=== PATIENT | female | born 1985 | race African-American/Black ===

== ENCOUNTER 2016-03-04 12:47 | Emergency (ER) | payer OTHER ==
[~2016-03-04] VITALS: Ht 157.5 cm; Wt 110.1 kg
[~2016-03-04 12:47] MED LIST: DIFLUCAN150 MG PO; MOTRIN600 MG PO; MOTRIN800 MG PO; NORCO 7.5/321 TABLET PO; PRENATAL TABLE1 EAC3 PO; VIBRAMYCIN100 MG PO
[2016-03-04 14:13] LABS: ADD MIUA? NO; BILIRUBIN NEGATIVE; BLOOD NEGATIVE; COLOR YELLOW ((YELLOW)); GLUCOSE (STRIP) NEGATIVE; KETONES NEGATIVE; LEUKOCYTES NEGATIVE; NITRITE NEGATIVE; PROTEIN (STRIP) NEGATIVE; SPECIFIC GRAVITY 1.029 (1.000-1.030); UCUL ADDED? NO; UROBILINOGEN 0.2 MG/DL (0.2-1.0)
[2016-03-04 14:15] LABS: INTERNAL CONTROL VALID? YES
[2016-03-04 14:58] VITALS: BP 121/60
[2016-03-06 13:24] LABS: CHLAMYDIA TRACHOMATIS NEGATIVE; NEISSERIA GONORRHOEAE NEGATIVE
== END 2016-03-04 14:59 | disposition home or self-care (01) ==
LOC: EME 12:47
PROVIDERS: Nurse Practitioner Family
DX: N93.8 Other specified abnormal uterine and vaginal bleeding (principal); Z11.3 Encounter for screening for infections with a predominantly sexual mode of transmission
CPT/HCPCS: 81003; 84703; 87210; 87491; 87591; 99281; 99284

== ENCOUNTER 2016-03-20 12:47 | Emergency (ER) | payer OTHER ==
[~2016-03-20] VITALS: Ht 157.5 cm; Wt 109.8 kg
[2016-03-20 15:13] LABS: HEMATOCRIT 38.3 % (36.0-46.0); MCH 26.7 PG (29.0-34.0); MCHC 33.2 G/DL (30.0-36.0); MCV 80.6 FL (83-99); MEAN PLAT.VOLUME 9.5 uM^3 (9.5-12.4); PLATELET COUNT 271 K/uL (156-360); RBC DIS.WIDTH-CV 15.4 % (11.8-14.6); RED BLOOD COUNT 4.75 M/uL (3.80-5.20)
[2016-03-20 15:19] LABS: ADD MIUA? NO; BILIRUBIN NEGATIVE; BLOOD NEGATIVE; COLOR YELLOW ((YELLOW)); GLUCOSE (STRIP) NEGATIVE; KETONES NEGATIVE; LEUKOCYTES NEGATIVE; NITRITE NEGATIVE; PROTEIN (STRIP) NEGATIVE; UCUL ADDED? NO; UROBILINOGEN 0.2 MG/DL (0.2-1.0)
[2016-03-20 17:26] VITALS: BP 120/76
== END 2016-03-20 17:27 | disposition home or self-care (01) ==
LOC: RME 12:47 → EME 12:47 → RME 17:27
DX: O20.9 Hemorrhage in early pregnancy, unspecified (principal); R10.30 Lower abdominal pain, unspecified; Z3A.00 Weeks of gestation of pregnancy not specified
CPT/HCPCS: 81003; 84702; 85027; 99281; 99284

== ENCOUNTER 2016-04-01 08:57 | Emergency (ER) | payer OTHER ==
[~2016-04-01] VITALS: Ht 157.5 cm; Wt 111.4 kg
[2016-04-01 09:26] LABS: HEMATOCRIT 37.1 % (36.0-46.0); MCHC 33.2 G/DL (30.0-36.0); MCV 81.5 FL (83-99); MEAN PLAT.VOLUME 9.8 uM^3 (9.5-12.4); PLATELET COUNT 226 K/uL (156-360); RBC DIS.WIDTH-CV 15.4 % (11.8-14.6); RBC DIS.WIDTH-SD 44.9 % (39-53); RED BLOOD COUNT 4.55 M/uL (3.80-5.20); WHITE BLOOD COUNT 5.5 K/uL (4.1-10.2)
[2016-04-01 10:01] LABS: ADD MIUA? YES; BILIRUBIN NEGATIVE; BLOOD NEGATIVE; COLOR YELLOW ((YELLOW)); GLUCOSE (STRIP) NEGATIVE; KETONES NEGATIVE; LEUKOCYTES MODERATE; NITRITE NEGATIVE; PROTEIN (STRIP) TRACE; SPECIFIC GRAVITY 1.024 (1.000-1.030); UROBILINOGEN 0.2 MG/DL (0.2-1.0)
[2016-04-01 10:42] LABS: RED BLOOD CELLS 0-5 /HPF (0-5)
[2016-04-01 10:43] LABS: BACTERIA 1+ /HPF; CASTS NONE SEEN /LPF; CRYSTALS NONE SEEN; EPITHELIAL CELLS 2+ /HPF; MUCUS NONE SEEN /LPF; UCUL ADDED? NO; WHITE BLOOD CELLS 0-5 /HPF (0-5)
[2016-04-01 12:17] VITALS: BP 122/90
== END 2016-04-01 12:18 | disposition home or self-care (01) ==
LOC: EME 08:57
DX: O20.0 Threatened abortion (principal); O23.31 Infections of other parts of urinary tract in pregnancy, first trimester; N76.0 Acute vaginitis; Z3A.08 8 weeks gestation of pregnancy
CPT/HCPCS: 76801; 81003; 84702; 85027; 86900; 86901; 99281; 99284

== ENCOUNTER 2016-07-01 11:19 | Emergency (ER) | payer OTHER ==
[~2016-07-01] VITALS: Ht 157.5 cm; Wt 119.3 kg
[2016-07-01 12:49] LABS: HEMATOCRIT 40.5 % (36.0-46.0); MCH 26.8 PG (29.0-34.0); MCHC 31.9 G/DL (30.0-36.0); MEAN PLAT.VOLUME 9.9 uM^3 (9.5-12.4); PLATELET COUNT 258 K/uL (156-360); RBC DIS.WIDTH-CV 14.3 % (11.8-14.6); RBC DIS.WIDTH-SD 43.4 % (39-53); RED BLOOD COUNT 4.82 M/uL (3.80-5.20); WHITE BLOOD COUNT 12.9 K/uL (4.1-10.2)
[2016-07-01 13:00] LABS: CHLORIDE 104 mEq/L (99-109); POTASSIUM 4.2 mEq/L (3.7-5.4); SODIUM 137 mEq/L (136-147)
[2016-07-01 13:02] LABS: GLUCOSE 87 mg/dL (70-99)
[2016-07-01 13:04] LABS: ANION GAP 10 MEQ/L (2-14); TOTAL BILIRUBIN 0.3 mg/dL (0.0-1.0)
[2016-07-01 13:06] LABS: ALKALINE PHOSPHATASE 88 IU/L (3-129); GFR ESTIMATE (CALCULATED) > 59 mL/min/
[2016-07-01 13:07] LABS: UREA NITROGEN (BUN) 8 mg/dL (9-23)
[2016-07-01 13:15] LABS: QUANTITATIVE HCG < 4.0 MIU/ML
[2016-07-01 15:37] LABS: ADD MIUA? YES; BILIRUBIN NEGATIVE; BLOOD LARGE; COLOR YELLOW ((YELLOW)); GLUCOSE (STRIP) NEGATIVE; KETONES NEGATIVE; LEUKOCYTES NEGATIVE; NITRITE NEGATIVE; PROTEIN (STRIP) 30; SPECIFIC GRAVITY 1.024 (1.000-1.030); UROBILINOGEN 0.2 MG/DL (0.2-1.0)
[2016-07-01 15:58] LABS: BACTERIA NONE SEEN /HPF; EPITHELIAL CELLS 2+ /HPF; MUCUS TRACE /LPF; RED BLOOD CELLS 0-5 /HPF (0-5); UCUL ADDED? NO; WHITE BLOOD CELLS 0-5 /HPF (0-5)
[2016-07-01] MEDS ORDERED: PERCOCET 5/31 TABLET PO (16:25)
[2016-07-01] MEDS ORDERED: ZOFRAN ODT4 MG PO (16:25)
[2016-07-01 16:30] VITALS: BP 126/88
== END 2016-07-01 16:45 | disposition home or self-care (01) ==
LOC: EME 11:19
DX: R10.30 Lower abdominal pain, unspecified (principal); N93.8 Other specified abnormal uterine and vaginal bleeding; R10.2 Pelvic and perineal pain
CPT/HCPCS: 76856; 80053; 81003; 84702; 85027; 99281; 99284

== ENCOUNTER 2016-08-18 17:04 | Emergency (ER) | payer OTHER ==
[~2016-08-18] VITALS: Ht 157.5 cm; Wt 111.8 kg
[~2016-08-18 17:04] MED LIST changes: +PERCOCET 5/31 TABLET PO; +ZOFRAN ODT4 MG PO
[2016-08-18 17:44] LABS: HEMATOCRIT 38.7 % (36.0-46.0); MCHC 32.6 G/DL (30.0-36.0); MEAN PLAT.VOLUME 10.4 uM^3 (9.5-12.4); PLATELET COUNT 278 K/uL (156-360); RBC DIS.WIDTH-CV 14.5 % (11.8-14.6); RBC DIS.WIDTH-SD 43.4 % (39-53); RED BLOOD COUNT 4.66 M/uL (3.80-5.20); WHITE BLOOD COUNT 7.1 K/uL (4.1-10.2)
[2016-08-18 17:53] LABS: CHLORIDE 105 mEq/L (99-109); POTASSIUM 4.2 mEq/L (3.7-5.4); SODIUM 137 mEq/L (136-147)
[2016-08-18 17:55] LABS: GLUCOSE 82 mg/dL (70-99)
[2016-08-18 17:56] LABS: ANION GAP 10 MEQ/L (2-14)
[2016-08-18 17:57] LABS: TOTAL BILIRUBIN 0.2 mg/dL (0.0-1.0)
[2016-08-18 17:58] LABS: ALKALINE PHOSPHATASE 89 IU/L (3-129)
[2016-08-18 17:59] LABS: GFR ESTIMATE (CALCULATED) > 59 mL/min/
[2016-08-18 18:00] LABS: UREA NITROGEN (BUN) 9 mg/dL (9-23)
[2016-08-18 18:08] LABS: QUANTITATIVE HCG < 4.0 MIU/ML
[2016-08-18 18:40] LABS: ADD MIUA? YES; BILIRUBIN NEGATIVE; BLOOD NEGATIVE; COLOR YELLOW ((YELLOW)); GLUCOSE (STRIP) NEGATIVE; KETONES NEGATIVE; LEUKOCYTES NEGATIVE; NITRITE NEGATIVE; PROTEIN (STRIP) NEGATIVE; SPECIFIC GRAVITY 1.015 (1.000-1.030); UROBILINOGEN 0.2 MG/DL (0.2-1.0)
[2016-08-18 18:44] LABS: BACTERIA RARE /HPF; EPITHELIAL CELLS RARE /HPF; MUCUS TRACE /LPF; RED BLOOD CELLS 0-5 /HPF (0-5); UCUL ADDED? NO; WHITE BLOOD CELLS 0-5 /HPF (0-5)
[2016-08-18] MEDS ORDERED: NORCO 5/3251 TABLET PO (19:13)
[2016-08-18 19:26] VITALS: BP 148/88
== END 2016-08-18 19:29 | disposition home or self-care (01) ==
LOC: EME 17:04 → EXP 17:04
DX: R10.2 Pelvic and perineal pain (principal)
CPT/HCPCS: 80053; 81003; 84702; 85027; 99281; 99284

== ENCOUNTER 2016-09-09 08:16 | Emergency (ER) | payer OTHER ==
[~2016-09-09] VITALS: Ht 157.5 cm; Wt 112.4 kg
[~2016-09-09 08:16] MED LIST changes: +NORCO 5/3251 TABLET PO
[2016-09-09 08:55] LABS: HEMATOCRIT 36.5 % (36.0-46.0); MCH 26.9 PG (29.0-34.0); MCHC 32.6 G/DL (30.0-36.0); MCV 82.6 FL (83-99); MEAN PLAT.VOLUME 9.9 uM^3 (9.5-12.4); PLATELET COUNT 232 K/uL (156-360); RBC DIS.WIDTH-CV 14.6 % (11.8-14.6); RBC DIS.WIDTH-SD 43.8 % (39-53); RED BLOOD COUNT 4.42 M/uL (3.80-5.20); WHITE BLOOD COUNT 7.1 K/uL (4.1-10.2)
[2016-09-09 09:00] LABS: ADD MIUA? YES; BILIRUBIN NEGATIVE; BLOOD NEGATIVE; COLOR YELLOW ((YELLOW)); GLUCOSE (STRIP) NEGATIVE; KETONES NEGATIVE; LEUKOCYTES TRACE; NITRITE NEGATIVE; PROTEIN (STRIP) NEGATIVE; SPECIFIC GRAVITY 1.018 (1.000-1.030); UROBILINOGEN 0.2 MG/DL (0.2-1.0)
[2016-09-09 09:04] LABS: BACTERIA NONE SEEN /HPF; EPITHELIAL CELLS 1+ /HPF; MUCUS TRACE /LPF; RED BLOOD CELLS 0-5 /HPF (0-5); UCUL ADDED? NO; WHITE BLOOD CELLS 0-5 /HPF (0-5)
[2016-09-09 09:05] LABS: CHLORIDE 106 mEq/L (99-109); SODIUM 138 mEq/L (136-147)
[2016-09-09 09:08] LABS: GLUCOSE 91 mg/dL (70-99)
[2016-09-09 09:09] LABS: ANION GAP 8 MEQ/L (2-14); TOTAL BILIRUBIN 0.2 mg/dL (0.0-1.0)
[2016-09-09 09:11] LABS: ALKALINE PHOSPHATASE 84 IU/L (3-129); GFR ESTIMATE (CALCULATED) > 59 mL/min/
[2016-09-09 09:12] LABS: UREA NITROGEN (BUN) 14 mg/dL (9-23)
[2016-09-09 09:21] LABS: QUANTITATIVE HCG < 4.0 MIU/ML
[2016-09-09 12:20] VITALS: BP 147/103
[2016-09-09 18:45] LABS: CANDIDA DNA PROBE NEGATIVE; GARDNERELLA DNA PROBE POSITIVE; INTERNAL CONTROL VALID? YES
[2016-09-11 12:21] LABS: CHLAMYDIA TRACHOMATIS NEGATIVE; NEISSERIA GONORRHOEAE NEGATIVE
== END 2016-09-09 12:21 | disposition home or self-care (01) ==
LOC: EME 08:16 → EXP 08:16
PROVIDERS: Physician Assistant
DX: N89.8 Other specified noninflammatory disorders of vagina (principal); R10.30 Lower abdominal pain, unspecified; R19.7 Diarrhea, unspecified; R11.0 Nausea; Z11.3 Encounter for screening for infections with a predominantly sexual mode of transmission
CPT/HCPCS: 80053; 81003; 84702; 85027; 87210; 87480; 87491; 87510; 87591; 87660; 99281; 99284; J0696

== ENCOUNTER 2016-10-14 21:02 | Emergency (ER) | payer OTHER ==
[~2016-10-14] VITALS: Ht 157.5 cm; Wt 111.5 kg
[2016-10-14 21:38] LABS: HEMATOCRIT 36.4 % (36.0-46.0); MCH 26.8 PG (29.0-34.0); MCHC 32.7 G/DL (30.0-36.0); MEAN PLAT.VOLUME 9.7 uM^3 (9.5-12.4); PLATELET COUNT 218 K/uL (156-360); RBC DIS.WIDTH-CV 14.5 % (11.8-14.6); RBC DIS.WIDTH-SD 43.1 % (39-53); RED BLOOD COUNT 4.44 M/uL (3.80-5.20); WHITE BLOOD COUNT 6.3 K/uL (4.1-10.2)
[2016-10-14 21:51] LABS: CHLORIDE 107 mEq/L (99-109); POTASSIUM 3.7 mEq/L (3.7-5.4); SODIUM 139 mEq/L (136-147)
[2016-10-14 21:54] LABS: GLUCOSE 118 mg/dL (70-99)
[2016-10-14 21:55] LABS: ANION GAP 8 MEQ/L (2-14)
[2016-10-14 21:56] LABS: TOTAL BILIRUBIN 0.2 mg/dL (0.0-1.0)
[2016-10-14 21:57] LABS: ALKALINE PHOSPHATASE 93 IU/L (3-129); GFR ESTIMATE (CALCULATED) > 59 mL/min/
[2016-10-14 21:58] LABS: UREA NITROGEN (BUN) 13 mg/dL (9-23)
[2016-10-14 22:07] LABS: QUANTITATIVE HCG < 4.0 MIU/ML
[2016-10-14 23:21] LABS: ADD MIUA? NO; BILIRUBIN NEGATIVE; BLOOD NEGATIVE; COLOR YELLOW ((YELLOW)); GLUCOSE (STRIP) NEGATIVE; KETONES NEGATIVE; LEUKOCYTES NEGATIVE; NITRITE NEGATIVE; PROTEIN (STRIP) 30; SPECIFIC GRAVITY 1.027 (1.000-1.030); UCUL ADDED? NO; UROBILINOGEN 0.2 MG/DL (0.2-1.0)
[2016-10-15] MEDS ORDERED: MOTRIN800 MG PO (00:07)
[2016-10-15 00:40] VITALS: BP 156/95
== END 2016-10-15 00:42 | disposition home or self-care (01) ==
LOC: EME 21:02
DX: N83.201 Unspecified ovarian cyst, right side (principal); N94.10 Unspecified dyspareunia
CPT/HCPCS: 76856; 80053; 81003; 84702; 85027; 99281; 99283

== ENCOUNTER 2017-01-16 16:42 | Emergency (ER) | payer SELFPAY ==
[~2017-01-16] VITALS: Ht 157.5 cm; Wt 113.7 kg
[2017-01-16 17:01] LABS: HEMATOCRIT 38.3 % (36.0-46.0); MCH 27.7 PG (29.0-34.0); MCHC 32.6 G/DL (30.0-36.0); MCV 84.7 FL (83-99); MEAN PLAT.VOLUME 9.9 uM^3 (9.5-12.4); PLATELET COUNT 239 K/uL (156-360); RBC DIS.WIDTH-CV 14.6 % (11.8-14.6); RBC DIS.WIDTH-SD 45.1 % (39-53); RED BLOOD COUNT 4.52 M/uL (3.80-5.20); WHITE BLOOD COUNT 6.3 K/uL (4.1-10.2)
[2017-01-16 17:12] LABS: CHLORIDE 106 mEq/L (99-109); POTASSIUM 3.9 mEq/L (3.7-5.4); SODIUM 138 mEq/L (136-147)
[2017-01-16 17:14] LABS: GLUCOSE 111 mg/dL (70-99)
[2017-01-16 17:15] LABS: ANION GAP 8 MEQ/L (2-14)
[2017-01-16 17:16] LABS: TOTAL BILIRUBIN 0.2 mg/dL (0.0-1.0)
[2017-01-16 17:18] LABS: ALKALINE PHOSPHATASE 93 IU/L (3-129); GFR ESTIMATE (CALCULATED) > 59 mL/min/
[2017-01-16 17:19] LABS: UREA NITROGEN (BUN) 12 mg/dL (9-23)
[2017-01-16 17:27] LABS: QUANTITATIVE HCG < 4.0 MIU/ML
[2017-01-16 17:52] LABS: ADD MIUA? YES; BILIRUBIN NEGATIVE; BLOOD NEGATIVE; COLOR YELLOW ((YELLOW)); GLUCOSE (STRIP) NEGATIVE; KETONES 5; LEUKOCYTES NEGATIVE; NITRITE NEGATIVE; PROTEIN (STRIP) 30; SPECIFIC GRAVITY 1.027 (1.000-1.030)
[2017-01-16 18:12] LABS: LIPASE 24 U/L (1.0-51.0)
[2017-01-16 18:29] LABS: BACTERIA RARE /HPF; EPITHELIAL CELLS 1+ /HPF; MUCUS 1+ /LPF; UCUL ADDED? NO; WHITE BLOOD CELLS 0-5 /HPF (0-5)
[2017-01-16] MEDS ORDERED: MOTRIN600 MG PO (20:43)
[2017-01-16 20:51] VITALS: BP 147/90
[2017-01-18 11:54] LABS: CHLAMYDIA TRACHOMATIS NEGATIVE; NEISSERIA GONORRHOEAE NEGATIVE
== END 2017-01-16 20:56 | disposition home or self-care (01) ==
LOC: EME 16:42
PROVIDERS: Physician Assistant
DX: R10.2 Pelvic and perineal pain (principal); N89.8 Other specified noninflammatory disorders of vagina
CPT/HCPCS: 76856; 80053; 81003; 83690; 84702; 85027; 87210; 87491; 87591; 99281; 99284

== ENCOUNTER 2017-01-26 11:10 | Emergency (ER) | payer OTHER ==
[~2017-01-26] VITALS: Ht 157.5 cm; Wt 114.6 kg
[2017-01-26 13:53] LABS: ADD MIUA? NO; BILIRUBIN NEGATIVE; BLOOD NEGATIVE; COLOR YELLOW ((YELLOW)); GLUCOSE (STRIP) NEGATIVE; KETONES NEGATIVE; LEUKOCYTES NEGATIVE; NITRITE NEGATIVE; PROTEIN (STRIP) NEGATIVE; SPECIFIC GRAVITY 1.025 (1.000-1.030); UROBILINOGEN 0.2 MG/DL (0.2-1.0)
[2017-01-26 14:09] VITALS: BP 154/89
[2017-01-27 14:35] LABS: CHLAMYDIA TRACHOMATIS NEGATIVE; NEISSERIA GONORRHOEAE NEGATIVE
== END 2017-01-26 14:09 | disposition home or self-care (01) ==
LOC: EME 11:10
PROVIDERS: Nurse Practitioner Family
DX: N89.8 Other specified noninflammatory disorders of vagina (principal); R68.83 Chills (without fever); R10.9 Unspecified abdominal pain; Z11.3 Encounter for screening for infections with a predominantly sexual mode of transmission
CPT/HCPCS: 81003; 84702; 87210; 87491; 87591; 99281; 99284

== ENCOUNTER 2017-04-28 10:47 | Emergency (ER) | payer OTHER ==
[~2017-04-28] VITALS: Ht 157.5 cm; Wt 111.4 kg
[2017-04-28 11:23] LABS: HEMATOCRIT 35.4 % (36.0-46.0); HEMOGLOBIN 11.7 G/DL (11.9-15.5); MCH 27.5 PG (29.0-34.0); MCHC 33.1 G/DL (30.0-36.0); MCV 83.3 FL (83-99); PLATELET COUNT 239 K/uL (156-360); RBC DIS.WIDTH-CV 14.3 % (11.8-14.6); RED BLOOD COUNT 4.25 M/uL (3.80-5.20); WHITE BLOOD COUNT 6.1 K/uL (4.1-10.2)
[2017-04-28 11:32] LABS: ALBUMIN 3.9 g/dL (3.2-4.8); CHLORIDE 109 mEq/L (99-109); POTASSIUM 4.1 mEq/L (3.7-5.4); SODIUM 139 mEq/L (136-147)
[2017-04-28 11:34] LABS: GLUCOSE 95 mg/dL (70-99)
[2017-04-28 11:36] LABS: TOTAL BILIRUBIN 0.2 mg/dL (0.0-1.0)
[2017-04-28 11:38] LABS: ALKALINE PHOSPHATASE 85 IU/L (3-129); CREATININE 0.8 mg/dL (0.6-1.3); GFR ESTIMATE (CALCULATED) > 59 mL/min/
[2017-04-28 11:39] LABS: UREA NITROGEN (BUN) 12 mg/dL (9-23)
[2017-04-28 11:40] LABS: AST (GOT) 18 IU/L (2-34)
[2017-04-28 11:41] LABS: ALT (GPT) 21 IU/L (3-49)
[2017-04-28 11:47] LABS: QUANTITATIVE HCG < 4.0 MIU/ML
[2017-04-28 13:15] VITALS: BP 137/95
== END 2017-04-28 13:15 | disposition left against medical advice (07) ==
LOC: EME 10:47
DX: R10.31 Right lower quadrant pain (principal); R19.7 Diarrhea, unspecified; Z87.891 Personal history of nicotine dependence
CPT/HCPCS: 80053; 81003; 84702; 85027; 99281; 99284

== ENCOUNTER 2017-06-18 19:33 | Emergency (ER) | payer OTHER ==
[~2017-06-18] VITALS: Ht 157.5 cm; Wt 111.4 kg
[2017-06-18 20:01] LABS: APPEARANCE CLEAR ((CLEAR)); BILIRUBIN NEGATIVE; BLOOD NEGATIVE; COLOR YELLOW ((YELLOW)); GLUCOSE (STRIP) NEGATIVE; KETONES NEGATIVE; LEUKOCYTES NEGATIVE; NITRITE NEGATIVE; PROTEIN (STRIP) 30; SPECIFIC GRAVITY 1.026 (1.000-1.030); UCUL ADDED? NO
[2017-06-18 20:07] LABS: HEMATOCRIT 35.1 % (36.0-46.0); HEMOGLOBIN 11.7 G/DL (11.9-15.5); MCH 27.6 PG (29.0-34.0); MCHC 33.3 G/DL (30.0-36.0); MCV 82.8 FL (83-99); PLATELET COUNT 248 K/uL (156-360); RBC DIS.WIDTH-CV 14.4 % (11.8-14.6); RBC DIS.WIDTH-SD 42.7 % (39-53); RED BLOOD COUNT 4.24 M/uL (3.80-5.20)
[2017-06-18 20:25] LABS: ALBUMIN 4.2 g/dL (3.2-4.8); CHLORIDE 108 mEq/L (99-109); POTASSIUM 3.9 mEq/L (3.7-5.4); SODIUM 139 mEq/L (136-147)
[2017-06-18 20:28] LABS: GLUCOSE 88 mg/dL (70-99); TOTAL PROTEIN 7.5 g/dL (6.4-8.3)
[2017-06-18 20:30] LABS: TOTAL BILIRUBIN 0.2 mg/dL (0.0-1.0)
[2017-06-18 20:31] LABS: ALKALINE PHOSPHATASE 103 IU/L (3-129); CREATININE 0.8 mg/dL (0.6-1.3); GFR ESTIMATE (CALCULATED) > 59 mL/min/
[2017-06-18 20:32] LABS: UREA NITROGEN (BUN) 13 mg/dL (9-23)
[2017-06-18 20:33] LABS: AST (GOT) 16 IU/L (2-34)
[2017-06-18 20:34] LABS: ALT (GPT) 19 IU/L (3-49)
[2017-06-18 20:42] LABS: QUANTITATIVE HCG < 4.0 MIU/ML
[2017-06-18] MEDS ORDERED: NAPROSYN500 MG PO (22:21)
[2017-06-18 22:24] LABS: SOURCE SWAB
[2017-06-18 22:26] VITALS: BP 146/92
== END 2017-06-18 22:27 | disposition home or self-care (01) ==
LOC: EME 19:33
PROVIDERS: Physician Assistant
DX: R10.30 Lower abdominal pain, unspecified (principal)
CPT/HCPCS: 80053; 81003; 84702; 85027; 87210; 87491; 87591; 99281; 99284

== ENCOUNTER 2017-09-11 17:40 | Emergency (ER) | payer OTHER ==
[~2017-09-11] VITALS: Ht 157.5 cm; Wt 111.4 kg
[~2017-09-11 17:40] MED LIST changes: +NAPROSYN500 MG PO
[2017-09-11 18:14] LABS: HEMATOCRIT 35.1 % (36.0-46.0); HEMOGLOBIN 11.7 G/DL (11.9-15.5); MCH 26.8 PG (29.0-34.0); MCHC 33.3 G/DL (30.0-36.0); MCV 80.5 FL (83-99); PLATELET COUNT 262 K/uL (156-360); RED BLOOD COUNT 4.36 M/uL (3.80-5.20); WHITE BLOOD COUNT 10.5 K/uL (4.1-10.2)
[2017-09-11 18:18] LABS: APPEARANCE CLEAR ((CLEAR)); BILIRUBIN NEGATIVE; BLOOD NEGATIVE; COLOR YELLOW ((YELLOW)); GLUCOSE (STRIP) NEGATIVE; KETONES 5; LEUKOCYTES SMALL; NITRITE NEGATIVE; PROTEIN (STRIP) NEGATIVE; SPECIFIC GRAVITY 1.025 (1.000-1.030)
[2017-09-11 18:25] LABS: ALBUMIN 4.4 g/dL (3.2-4.8); CHLORIDE 105 mEq/L (99-109); POTASSIUM 3.7 mEq/L (3.7-5.4); SODIUM 138 mEq/L (136-147)
[2017-09-11 18:28] LABS: GLUCOSE 108 mg/dL (70-99); TOTAL PROTEIN 8.1 g/dL (6.4-8.3)
[2017-09-11 18:29] LABS: BACTERIA RARE /HPF; EPITHELIAL CELLS 1+ /HPF; MUCUS TRACE /LPF; RED BLOOD CELLS 0-5 /HPF (0-5); UCUL ADDED? NO; WHITE BLOOD CELLS 0-5 /HPF (0-5)
[2017-09-11 18:30] LABS: TOTAL BILIRUBIN 0.2 mg/dL (0.0-1.0)
[2017-09-11 18:31] LABS: ALKALINE PHOSPHATASE 111 IU/L (3-129); CREATININE 0.9 mg/dL (0.6-1.3); GFR ESTIMATE (CALCULATED) > 59 mL/min/
[2017-09-11 18:32] LABS: UREA NITROGEN (BUN) 13 mg/dL (9-23)
[2017-09-11 18:33] LABS: AST (GOT) 15 IU/L (2-34)
[2017-09-11 18:34] LABS: ALT (GPT) 19 IU/L (3-49)
[2017-09-11 18:42] LABS: QUANTITATIVE HCG < 4.0 MIU/ML
[2017-09-11 20:47] LABS: LIPASE 17 U/L (1.0-51.0)
[2017-09-11] MEDS ORDERED: KEFLEX500 MG PO (22:52)
[2017-09-11 23:04] VITALS: BP 132/71
== END 2017-09-11 23:09 | disposition home or self-care (01) ==
LOC: EME 17:40 → RME 17:40
DX: R10.30 Lower abdominal pain, unspecified (principal); R10.2 Pelvic and perineal pain; N30.90 Cystitis, unspecified without hematuria; N89.8 Other specified noninflammatory disorders of vagina; R19.7 Diarrhea, unspecified; N92.6 Irregular menstruation, unspecified; K76.0 Fatty (change of) liver, not elsewhere classified
CPT/HCPCS: 74177; 76856; 80053; 81003; 83690; 84702; 85027; 87086; 99281; 99285; J1885; J7120